=== PATIENT | male | born 1965 | race Caucasian/White ===

== ENCOUNTER → 2023-09-20 | Outpatient (CLI) | payer BC ==
[~2023-09-20] MED LIST: NO HOME MEDICATIONS
== END ==
LOC: COL.RAD 12:47
DX: M79.662 Pain in left lower leg (principal)

== ENCOUNTER → 2024-02-24 | Outpatient (CLI) | payer BC | LOC: COL.RAD 08:25 | DX: K76.0 Fatty (change of) liver, not elsewhere classified (principal) ==